=== PATIENT | female | born 1985 | race Caucasian/White ===

== ENCOUNTER 2017-12-02 01:56 | Emergency (ER) | payer BC ==
--- NOTE | 2017-12-02 02:58 | EDM.PDOC ---
ED HPI GENERAL MEDICAL PROBLEM - General Chief Complaint: Lower Extremity Injury/Pain Stated Complaint: BLOOD CLOT IN LEG? Time Seen by Provider: 12/02/17 02:52 Source of Information: Reports: Patient History Limitations: Reports: No Limitations - History of Present Illness INITIAL COMMENTS - FREE TEXT/NARRATIVE: pt developed acute pain in the lateral aspect of her left foot. This has become more and more uncomfortable as the nite has progressed. She has no pain and tenderness in the calf of the same leg. 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 (See Below) Other OB/BYN History: cyst on ovary rupture Neurological History: Reports: Concussion Psychiatric History: Reports: Anxiety - Infectious Disease History Infectious Disease History: Reports: Chicken Pox Social & Family History - Tobacco Use Smoking Status *Q: Never Smoker - Caffeine Use Caffeine Use: Reports: Coffee, Tea - Recreational Drug Use Recreational Drug Use: No Review of Systems - Review of Systems Review Of Systems: See Below Constitutional: Reports: No Symptoms Eyes: Reports: No Symptoms Ears: Reports: No Symptoms Nose: Reports: No Symptoms Mouth/Throat: Reports: No Symptoms Respiratory: Reports: No Symptoms Cardiovascular: Reports: No Symptoms GI/Abdominal: Reports: No Symptoms Genitourinary: Reports: No Symptoms Musculoskeletal: Reports: Other (pain in the lateral aspect of the left foot. ) Skin: Reports: No Symptoms ED EXAM, GENERAL - Physical Exam Exam: See Below Free Text/Narrative:: pt arrived with acute pain in the lateral aspect of the left foot. This area does feel warm and is very tender, She has no tenderness in the calf area. , Exam Limited By: No Limitations General Appearance: Alert, Anxious Ears: Normal TMs Nose: Normal Inspection Throat/Mouth: Normal Inspection Head: Atraumatic Neck: Normal Inspection Extremities: Increased Warmth, Other ( swelling of the left foot and ankle area. ) Neurological: Alert, Oriented Course - Vital Signs Last Recorded V/S: Last Vital Signs Temp 36.4 C 12/02/17 02:40 Pulse 83 12/02/17 02:40 Resp 18 12/02/17 02:40 BP 113/61 12/02/17 02:40 Pulse Ox 96 12/02/17 02:40 - Orders/Labs/Meds Orders: Active Orders 24 hr Category Date Time Status URIC ACID [CHEM] Stat Lab 12/02/17 02:55 Ordered Labs: Laboratory Tests 12/02/17 12/02/17 Range/Units 02:55 02:55 WBC 13.2 H (4.5-11.0) K/uL RBC 3.56 (3.30-5.50) M/uL Hgb 12.5 (12.0-15.0) g/dL Hct 36.6 (36.0-48.0) % MCV 103 H (80-98) fL MCH 35 H (27-31) pg MCHC 34 (32-36) % Plt Count 234 (150-400) K/uL Neut % (Auto) 67 H (36-66) % Lymph % (Auto) 20 L (24-44) % [place] % (Auto) 11 H (2-6) % Eos % (Auto) 2 (2-4) % Baso % (Auto) 0 (0-1) % Uric Acid 4.4 (2.6-6.2) mg/dL Meds: Medications Discontinued Medications Generic Name Dose Route Start Last Admin Trade Name Freq PRN Reason Stop Dose Admin Acetaminophen 650 mg 12/02/17 03:22 12/02/17 03:25 Tylenol PO 12/02/17 03:23 650 mg NOW ONE Administration - Re-Assessments/Exams Free Text/Narrative Re-Assessment/Exam: 12/02/17 03:22 wbc not markedly elevated, uric acid was normal Departure - Departure Time of Disposition: 03:23 Disposition: Home, Self-Care 01 Condition: Fair Clinical Impression: Cellulitis of left foot - Discharge Information Instructions: Cellulitis, Adult, [id number] Referrals: Giorgio Gutierrez MD [Primary Care Provider] - Forms: ED Department Discharge Care Plan Goals: rtc fpr a venous doppler of the left leg, no work tomorrow, soak foot tid followed by a cool pack, elevate leg, amoxicilin 500mg tid, tyenol 650 tid for discomfort. norco 5/325 q6h prn for severe pain - My Orders Last 24 Hours: My Active Orders 12/02/17 02:55 URIC ACID [CHEM] Stat - Assessment/Plan Last 24 Hours: My Active Orders 12/02/17 02:55 URIC ACID [CHEM] Stat
[2017-12-02] MEDS ORDERED: Acetaminophen 325 MG Tab PO ONE (03:22)
== END 2017-12-02 03:54 | disposition home or self-care (01) ==
LOC: JP.ED 01:56
DX: L03.116 Cellulitis of left lower limb (principal); Z88.1 Allergy status to other antibiotic agents
CPT/HCPCS: 36415; 84550; 85025; 99284; A9270; 93971-26-LT; 93971-LT

== ENCOUNTER 2024-07-06 06:32 | Day surgery (SDC) | payer BC, MEDICAID ==
[2024-07-06] MEDS ORDERED: Midazolam 1 MG/ML 2 ML SDV ONE (07:02)
[2024-07-06] MEDS ORDERED: Propofol 200 MG/20 ML SDV ONE ×2 (07:02→09:55)
[2024-07-06] MEDS ORDERED: fentaNYL 50 MCG/ML SDV ONE (07:02)
[2024-07-06] MEDS: Lactated Ringers 1,000 ML IV SCH (07:41)
== END 2024-07-06 11:20 | disposition home or self-care (01) ==
LOC: JP.SDS 06:32
PROVIDERS: ATTEND Surgery
DX: K64.9 Unspecified hemorrhoids (principal); F41.9 Anxiety disorder, unspecified; K92.2 Gastrointestinal hemorrhage, unspecified
CPT/HCPCS: 00811; 45380; 45398; 81025; J2250; J2704; J3010; J7120; 88305